=== PATIENT | male | born 1975 | race Caucasian/White ===

== ENCOUNTER 2018-05-25 19:47 | Emergency (ER) | payer SELFPAY ==
[~2018-05-25] VITALS: Ht 162.6 cm; Wt 59.0 kg
[2018-05-25] MEDS ORDERED: CYCLOBENZAPRINE HCL 10 MG TAB PO ONE (20:15)
[2018-05-25] MEDS ORDERED: DEXAMETHASONE SOD PHOS 10 MG/1 ML VIAL INJ ONE (20:15)
[2018-05-25] MEDS ORDERED: HYDROCODONE/APAP 10MG-325MG TAB PO ONE (20:15)
[2018-05-25] MEDS ORDERED: KETOROLAC TROMETHAMINE 60 MG/2 ML VIAL IM ONE (20:30)
[2018-05-25 22:14] VITALS: BP 140/98
== END 2018-05-25 22:18 | disposition home or self-care (01) ==
LOC: ER 19:47
DX: M54.5 Low back pain (principal); M79.652 Pain in left thigh
CPT/HCPCS: 99283; J1100; J1885